=== PATIENT | male | born 1965 | race Caucasian/White ===

== ENCOUNTER 2016-09-09 14:39 | Emergency (ER) | payer MEDICARE, SELFPAY ==
--- NOTE | ~2016-09-09 | ER ---
PATIENT'S NAME: ANEL DARBY [facility] AGE: 51 Y [address] ROOM: [place] [address] LOCATION: [facility] ADMIT DATE: 09/09/2016 ER/Outpatient Report DISCHARGE DATE: 09/09/2016 FAMILY PHYSICIAN: Kana Aceves MD ATTENDING PHYSICIAN: Suresh Mathis CHIEF COMPLAINT: Dislocated right hip. HISTORY OF PRESENT ILLNESS: The patient arrives by ambulance from his residence for concern for dislocated right hip. He has a history of prosthesis in the right hip with multiple recent dislocations over the last few weeks to months. The hip is newly replaced last fall. It was replaced secondary to a broken hip that did not heal well. He states he has pain in the hip and has not taken anything. He arrives by S crew. He has some cardiac history. He has not eaten since 10:00 am. He had a recent surgery on his right foot, and there is a bandage there, but is otherwise normal and has not been causing him issues. The incident today happened when he was rolling over in bed. PAST MEDICAL HISTORY: Documented on the record and reviewed by me. SOCIAL HISTORY: Documented on the record and reviewed by me. MEDICATIONS: Documented on the record and reviewed by me. ALLERGIES: DOCUMENTED ON THE RECORD AND REVIEWED BY ME. REVIEW OF SYSTEMS: All systems reviewed and negative except as noted in the HPI. PHYSICAL EXAMINATION: VITAL SIGNS: Blood pressure 187/93, pulse 67, respiratory rate is 16, temperature 97.7, SpO2 is in the low 90s on room air. GENERAL: Age-appropriate male in no obvious distress, in mild pain resting comfortably on exam table. NEUROLOGIC: GCS 15. No focal deficits or asymmetry. The right lower extremity is neurovascularly intact. HEENT: Normocephalic, atraumatic. Eyes are PERRL. Oropharynx is clear. NECK: Supple. Trachea is midline. HEART: Regular rate and rhythm with no murmurs. PATIENT'S NAME: ANEL DARBY [facility] AGE: 51 Y [address] ROOM: [place] [address] LOCATION: [facility] ADMIT DATE: 09/09/2016 ER/Outpatient Report DISCHARGE DATE: 09/09/2016 FAMILY PHYSICIAN: Kana Aceves MD ATTENDING PHYSICIAN: Suresh Mathis LUNGS: Clear to auscultation bilateral. No rhonchi, wheezes, or rales. ABDOMEN: Soft, nontender, and nondistended. No rebound or guarding. BACK: Normal to inspection and palpation. EXTREMITIES: The right lower extremity is shortened, notably by approximately 5-6 cm compared to the contralateral side. There is no obvious deformity. The hip region is tender to palpation. Extremities are otherwise warm and well perfused. SKIN: Warm dry and intact with no obvious abnormalities. LABORATORY DATA AND X-RAYS: No labs were obtained. X-rays: Plain films of the hip shows a superior dislocation of the right hip prosthesis. Post reduction films show good location. 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 EMERGENCY DEPARTMENT COURSE: The patient was evaluated as above. Plain films were obtained. His pain was controlled with fentanyl. The hip was deemed appropriate for replacement. Anesthesia was consulted to provide sedation. Please see their notes in the flow sheet for the sedation. Consent was obtained for the reduction as well as the sedation. Time-out was taken and it was deemed appropriate to proceed. The patient was sedated and the hip was reduced with moderate amount of effort with inferior and anterior traction. It did slip out one time and had to be replaced. Post reduction films do show the hip is located appropriately. He is otherwise asymptomatic. He has recovered and felt to be at baseline with marked improvement in his pain. Vital signs improved significantly with a blood pressure 153/89 on discharge. He was feeling back to baseline. I did contact Dr. Turner, resident, for Dr. Beauchamp, orthopedic surgeon, at [facility] who did the prosthesis. The patient is to wear his abduction brace and they will contact him for closer followup as this appears to be a recurrent problem. The patient tolerated all procedures well, was feeling much better and back in anatomic position upon discharge. All questions were answered. The patient was discharged in good condition back to his home in the care of his family. MD SAM PRASAD/masoud PATIENT'S NAME: ANEL DARBY [facility] AGE: 51 Y [address] ROOM: [place] [address] LOCATION: [facility] ADMIT DATE: 09/09/2016 ER/Outpatient Report DISCHARGE DATE: 09/09/2016 FAMILY PHYSICIAN: Kana Aecves MD ATTENDING PHYSICIAN: Suresh Mathis /[id number] d: 09/10/16 1603 t: 09/11/16 0641, OUTPATIENT REPORT
[~2016-09-09 14:39] MED LIST: "\\\"PREP SPRAY\\\"-TIN4 OZ"; ABREVA TOP; ALDACTONE25 MG PO; AMBIEN5 MG PO; B-12 DOTS500 MCG PO; BACTRIM DS1 TAB PO; CALCIUM 600 +1 EA10 PO; CELEBREX200 MG PO; COLACE100 MG PO; COLCRYS0.6 MG PO; CUBICIN (NON-F500 MG IV; DELTASONE10 MG PO; DELTASONE20 MG PO; DEXILANT60 MG PO; DEXTROSE 50%-WA50 ML IVP; DILAUDID 2MG(HYD2 MG PO; DULCOLAX10 MG R; FEOSOL325 MG PO; FLOMAX0.4 MG PO; FLORASTOR250 MG PO; GLUCAGON/GLUCAGE1 MG SUB-Q; GLUCOSE1 EACH PO; LASIX40 MG PO; LEVAQUIN 750 M750 MG PO; LEVEMIR100 UNIT/1 SUB-Q; LEVOTHROID (S150 MCG PO; LIDEX 0.05%15 GM TOP; LIDOCAINE 1% MD20 M1 ID; LOPRESSOR25 MG PO; MAG-AL PLUS XS30 ML PO; MAGOX 400400 MG PO; MILK OF MA400 MG/5 M PO; MIRALAX17 GM PO; MULTI VITAMIN1 EACH PO; MYLANTA (MAG-AL30 ML PO; NORCO 5-325 MG1 TAB PO; NOVOLOG100 UNIT/M SUB-Q; PRADAXA150 MG PO; PROTONIX40 MG PO; ROXICODONE 5MG (5 MG PO; SENOKOT8.6 MG PO; TUMS REGULAR ST1 TAB PO; TYLENOL EXTRA500 MG PO; TYLENOL325 MG PO; ULTRAM50 MG PO; VALIUM5 MG PO; ZOFRAN4 MG PO; ZOFRAN4 MG/5 ML IVP; ZOSYN3.375 G1 IV; ZYLOPRIM300 MG PO
[2016-09-17] MEDS ORDERED: DEXILANT60 MG PO (11:33)
[2016-09-17] MEDS ORDERED: NUCYNTA50 MG PO (11:34)
[2016-09-17] MEDS ORDERED: LEVAQUIN500 MG PO (11:35)
== END 2016-09-09 16:23 | disposition disaster alternative care site (69) ==
LOC: GACC 14:39
PROC: 0SWBXJZ Revision of Synthetic Substitute in Left Hip Joint, External Approach (ICD-10-PCS; principal; 2016-09-09)
DX: T84.020A Dislocation of internal right hip prosthesis, initial encounter (principal); X50.9XXA Other and unspecified overexertion or strenuous movements or postures, initial encounter
CPT/HCPCS: J3010; J7030